=== PATIENT | male | born 1955 | race Two or more races ===

== ENCOUNTER 2021-10-30 18:10 | Emergency (ER) | payer OTHER ==
[~2021-10-30] VITALS: Ht 165.1 cm; Wt 64.4 kg
[2021-10-30] MEDS ORDERED: METF-440 PO (18:24)
[2021-10-30] MEDS ORDERED: LOSA50TA39 PO (18:24)
[2021-10-30] MEDS ORDERED: LISI2.5T14 PO (19:15)
--- NOTE | 2021-10-30 19:20 | NUR ---
pt a/o denies pain. pt here for redness to left eye.
[2021-10-30 19:28] VITALS: BP 147/89
--- NOTE | 2021-10-30 19:28 | NUR ---
Patient discharged to home in stable condition. Written and verbal after care instructions given. Patient verbalizes understanding of instructions. Stressed follow up or return to ER for worsening s/s.
== END 2021-10-30 19:29 | disposition home or self-care (01) ==
LOC: ER 18:15
DX: H11.32 Conjunctival hemorrhage, left eye (principal); I10 Essential (primary) hypertension; E11.9 Type 2 diabetes mellitus without complications; Z79.84 Long term (current) use of oral hypoglycemic drugs; Z79.899 Other long term (current) drug therapy
CPT/HCPCS: A4663